=== PATIENT | male | born 1975 | race Caucasian/White ===

== ENCOUNTER → 2018-09-27 19:13 | Outpatient (CLI) | payer OTHER, MEDICAID, SELFPAY | PROVIDERS: Visit Provider Physician Assistant | DX: L08.9 Local infection of the skin and subcutaneous tissue, unspecified (principal); S60.352A Superficial foreign body of left thumb, initial encounter | CPT/HCPCS: 87070; 87075; 87077; 87147; 87186; 87205 ==